=== PATIENT | male | born 1940 | race Caucasian/White ===

== ENCOUNTER 2019-05-15 09:06 | Day surgery (SDC) | payer MEDICARE, BC ==
[~2019-05-15] VITALS: Ht 177.8 cm; Wt 94.0 kg
[~2019-05-15 09:06] MED LIST: AMLO5TAB10 PO; B CO1TAB10 PO; CRESTOR5 MG PO; FERR325T14 PO; HYDR12.58 PO; HYDROmorphone 2 MG/ML VIAL IV PRN; IV RINGERS,LACTATED 1000ML 1,000 ML IV SCH; LANS30CA PO; LIDOCAINE 1% PF 2 ML VIAL. ID PRN; LIDOCAINE 2% PF 5 ML VIAL. ONE; MORPHINE SULFATE 2 MG/ML VIAL. IV PRN; ONDANSETRON PF 4 MG/2 ML VIAL. IV PRN; PROCHLORPERAZINE 10 MG/2 ML VIAL. IV PRN; PROPOFOL 20 ML IV ONE; ROCURONIUM 50 MG/5 ML VIAL. ONE; SOLI5TAB2 PO; TERA2CAP3 PO; VALS80TA3 PO; ceFAZolin 2GM PREMIX 2 GM/50 ML BAG IV ONE; fentaNYL PF VIAL 100 MCG/2 ML VIAL IV PRN; fentaNYL PF VIAL 100 MCG/2 ML VIAL ONE
[2019-05-15] MEDS ORDERED: BUPIVACAINE MPF 0.5% 30 ML VIAL. ONE (10:46)
[2019-05-15] MEDS ORDERED: DEXAMETHASONE SOD PHOS 4 MG/ML VIAL ONE (11:05)
[2019-05-15] MEDS ORDERED: SEVOFLURANE 31 TO 60 MINUTES. IH ONE (11:05)
[2019-05-15] MEDS ORDERED: ONDANSETRON PF 4 MG/2 ML VIAL. ONE (11:05)
--- NOTE | 2019-05-15 11:57 | DISCH ---
DISCHARGE INSTRUCTIONS Condition on Discharge Condition on Discharge: Stable Activity After Discharge Activity Instructions for Disc: Activity as tolerated, Avoid exertion Lifting Instructions after Dis: No heavy lifting Driving Instructions after Dis: Do not drive (3-4 days) Diet after Discharge Diet after Discharge: Regular Wound Incision Care Wound/Incision Care: Ice to area for comfort Other wound/incision instructi: september shower Wednesday Follow-Up Follow up with: Adán next week VESTA CRUZ MD May 15, 2019 11:57
[2019-05-15] MEDS ORDERED: HYDROcodone/APAP 5/325MG 1 TAB TABLET PO ONE (12:00)
[2019-05-15] MEDS ORDERED: DOCU50CA9 PO (12:07)
[2019-05-15] MEDS ORDERED: HYDR-3164 PO (12:07)
[2019-05-15] MEDS ORDERED: fentaNYL PF VIAL 100 MCG/2 ML VIAL ONE (12:15)
--- NOTE | 2019-05-15 12:47 | PDOC ---
BRIEF OPERATIVE NOTE Date: May 15, 2019 Pre-Op Diagnosis incarcerated supraumbilical hernia Post-Op Diagnosis same Procedure Performed primary repair Surgeon Adán Engine Lathe Operator Guera ROBERTO Anesthesia Type: General (LMA) Blood Loss 5cc IV Fluid 400cc Specimens Obtained incarcerated contents Findings extruded, incarcerated pre peritoneal fat Complications none Operative Note Wk # [id number] VESTA CRUZ MD May 15, 2019 12:47
--- NOTE | 2019-05-15 13:03 | OP ---
DATE OF SURGERY: 05/15/2019 PREOPERATIVE DIAGNOSIS: Incarcerated supraumbilical hernia. POSTOPERATIVE DIAGNOSIS: Incarcerated supraumbilical hernia. PROCEDURE: Primary repair. SURGEON: John Crzu MD RESIDENTIAL FEE APPRAISER: PARDEEP Castro ANESTHESIA: General LMA. ESTIMATED BLOOD LOSS: 5 mL. INTRAVENOUS FLUIDS: 400 mL. INDICATIONS: The patient is an active 78-year-old gentleman with some pain and palpable fullness above the umbilicus just to the left of midline. He is brought for repair. OPERATIVE FINDINGS: A small transverse defect in the anterior sheath was discovered with extruded incarcerated contents. Careful inspection in the midline fascia showed no other evidence of hernias. DESCRIPTION OF PROCEDURE: The patient brought to the operating suite, given a general LMA and the abdomen prepped and draped in usual sterile fashion. A 0.5% Marcaine was infiltrated above the umbilicus. Incision made and dissection carried down to the anterior sheath. Dissection carried to the left of midline where the incarcerated contents of the small hernia were found and incised. A single jiyisl-im-umjla inverted stitch of 0 PDS was used to close the defect. Care was taken to avoid abdominal contents. When a correct sponge count was obtained and hemostasis was present, the wound was closed with interrupted inverted 3-0 Vicryl in the subcutaneous tissue, subcuticular 4-0 Monocryl and Steri-Strips for the skin. Sterile dressing applied. Abdominal binder placed. The patient was awakened from his anesthetic and taken to the recovery room in satisfactory condition. JOHN CRUZ MD DR: IVIS/sho JOB#: [id number] / [id number]
[2019-05-15 13:05] VITALS: BP 124/68
--- NOTE | 2019-05-16 18:06 | PATHOLOGY ---
[facility] Accession Number: [id number] . 01 Material submitted: . umbilicus - INCARCERATED SUPRAUMBILICAL HERNIA SAC CONTENTS . 01 Clinical history: . Supraumbilical hernia without gangrene . 02 Diagnosis: Supraumbilical hernia repair: - Segment of fibroadipose tissue showing congestion, focal fibrosis, and recent hemorrhage, and containing a small benign lymph node. . LBQ 05/16/2019 1714 Local . 02 Comment: The findings are consistent with incarcerated hernia sac contents. There is no evidence of malignancy. JPM/db; 05/16/2019) . 02 Electronically signed: . Constantin García MD, Pathologist NPI- [id number] . 01 Gross description: . The specimen is received in formalin, labeled "Farhad Mckeon, incarcerated supraumbilical hernia sac contents" and consists of an encapsulated and partially disrupted yellow orange tissue measuring 3.8 x 2.5 x 1.5 cm. Sectioning reveals a white indurated foci measuring 0.8 x 0.5 cm. Inside Barrel Lathe Operator sections to include the entire foci is submitted in A1. (SDY; 05/15/2019) SYU/SYU 05/15/2019 1615 Local . 02 Pathologist provided ICD-10: K44.9 . 02 CPT . 624415 Specimen Comment: A courtesy copy of this report has been sent to [phone] Specimen Comment: [id number] Specimen Comment: Report sent to / DR YAÑEZ Performed at: [address], [place], [place] [id number] MD Leonard White MD Phone: [phone] Performed at: 02 [facility] [address] [place], [place] [id number] MD Constantin García MD Phone: [phone]
== END 2019-05-15 13:25 | disposition home or self-care (01) ==
LOC: SURG 09:06
PROVIDERS: ATTEND Surgery
DX: K43.6 Other and unspecified ventral hernia with obstruction, without gangrene (principal); I10 Essential (primary) hypertension; E78.00 Pure hypercholesterolemia, unspecified; K21.9 Gastro-esophageal reflux disease without esophagitis; K22.70 Barrett's esophagus without dysplasia; D64.9 Anemia, unspecified; E66.3 Overweight; Z68.29 Body mass index [BMI] 29.0-29.9, adult; Z98.41 Cataract extraction status, right eye; Z98.42 Cataract extraction status, left eye; Z87.891 Personal history of nicotine dependence; Z85.53 Personal history of malignant neoplasm of renal pelvis; Z96.1 Presence of intraocular lens
CPT/HCPCS: 49561; A7015; J1100; J2001; J2405; J2704; J3010; J3490; J0696